=== PATIENT | female | born 1950 | race Caucasian/White ===

== ENCOUNTER 2017-12-12 02:27 | Observation (INO) | payer MEDICARE, OTHER ==
[~2017-12-12] VITALS: Ht 165.1 cm; Wt 115.9 kg
[2017-12-12] MEDS ORDERED: Omeprazole20 M1 PO (02:41)
[2017-12-12] MEDS ORDERED: GABA300 PO (02:42)
[2017-12-12] MEDS ORDERED: MELO7.5 PO (02:43)
[2017-12-12] MEDS ORDERED: HYDR1TAB94 PO (02:44)
[2017-12-12 02:55] LABS: BASOPHILS ABSOLUTE AUTO 0.07 K/mm3 (0.00-0.23); BASOPHILS PERCENT AUTO 1 % (0-2); EOSINOPHILS ABSOLUTE AUTO 0.18 K/mm3 (0.00-0.68); EOSINOPHILS PERCENT AUTO 2 % (0-6); Hematocrit 42.2 % (33.0-51.0); Hemoglobin 13.7 g/dL (11.5-16.0); IMMATURE GRAN ABSOLUTE AUTO 0.05 K/mm3 (0.00-0.10); IMMATURE GRAN PERCENT AUTO 1 % (0-1); LYMPHOCYTES ABSOLUTE AUTO 2.46 K/mm3 (0.84-5.20); LYMPHOCYTES PERCENT AUTO 27 % (21-46); MONOCYTES PERCENT AUTO 9 % (4-13); Mean Corpuscular HGB 29.4 pg (26.0-34.0); Mean Corpuscular HGB Conc 32.5 g/dL (31.5-36.5); Mean Corpuscular Volume 91 fL (80-100); Mean Platelet Volume 9.8 fL (9.1-12.4); NEUTROPHILS ABSOLUTE AUTO 5.45 K/mm3 (1.96-9.15); NEUTROPHILS PERCENT AUTO 60 % (41-73); Platelet Count 296 K/mm3 (150-400); RDW Coefficient Variation 13.7 % (11.7-14.2); RDW Standard Deviation 45.5 fL (35.1-46.3); Red Blood Cell Count 4.66 M/mm3 (3.80-5.20); White Blood Cell Count 9.01 K/mm3 (4.00-11.30)
[2017-12-12 03:08] LABS: International Normalized Ratio 0.94; Prothrombin Time Results 9.7 Sec (9.7-11.5)
[2017-12-12 03:09] LABS: Alanine Aminotransfer (ALT/SGP 17 U/L (12-78); Albumin, Blood 3.2 g/dL (3.4-5.0); Albumin/Globulin Ratio 0.7 (0.8-1.8); Alk Phos 114 U/L (50-136); Anion Gap 9 mmol/L (6-16); Aspartate Aminotrans (AST/SGOT 17 U/L (12-37); Bilirubin, Total 0.2 mg/dL (0.1-1.0); Blood Urea Nitrogen 10 mg/dL (8-24); Bun/Creatinine Ratio 13.3 (12.0-20.0); CO2, Blood 23 mmol/L (21-32); Calcium, Blood 8.5 mg/dL (8.5-10.1); Chloride, Blood 105 mmol/L (98-108); Creatinine, Blood 0.75 mg/dL (0.40-1.00); Globulin, Blood 4.5 g/dL (2.2-4.0); Glomerular Filtration Rate >60 (60-); Glucose, Blood 106 mg/dL (70-99); Potassium, Blood 4.1 mmol/L (3.5-5.5); Sodium, Blood 137 mmol/L (136-145); Total Protein, Blood 7.7 g/dL (6.4-8.2); Troponin I <0.015 ng/mL (0.000-0.040)
[2017-12-12] MEDS ORDERED: BENADRYL25 MG PO (07:25)
== END 2017-12-12 12:56 | disposition short-term general hospital (02) ==
LOC: ER 02:27 → PCU 02:29 → ER 05:27 → PCU 05:27
PROVIDERS: Emergency Medicine
PROC: 4A023N7 Measurement of Cardiac Sampling and Pressure, Left Heart, Percutaneous Approach (ICD-10-PCS; principal; 2017-12-12)
PROC: B2111ZZ Fluoroscopy of Multiple Coronary Arteries using Low Osmolar Contrast (ICD-10-PCS; 2017-12-12)
DX: I25.10 Atherosclerotic heart disease of native coronary artery without angina pectoris (principal); I21.4 Non-ST elevation (NSTEMI) myocardial infarction; I49.9 Cardiac arrhythmia, unspecified; M54.9 Dorsalgia, unspecified; G89.29 Other chronic pain; F17.210 Nicotine dependence, cigarettes, uncomplicated
CPT/HCPCS: 36415; 71275; 74175; 80053; 83880; 84484; 85025; 85610; 85730; 93005; 93010; 93454; 96374; 96375; 99152; 99153; 99285-25; C1769; C1894; G0378; J0282; J1644; J2250; J3010; J7030; Q9967

== ENCOUNTER 2019-09-04 19:57 | Emergency (ER) | payer MEDICARE, OTHER ==
[~2019-09-04] VITALS: Ht 165.1 cm; Wt 122.0 kg
[~2019-09-04 19:57] MED LIST: BENADRYL25 MG PO; GABA300 PO; HYDR1TAB94 PO; MELO7.5 PO; Omeprazole20 M1 PO
[2019-09-04 20:23] LABS: BASOPHILS ABSOLUTE AUTO 0.07 K/mm3 (0.00-0.23); BASOPHILS PERCENT AUTO 1 % (0-2); EOSINOPHILS ABSOLUTE AUTO 0.13 K/mm3 (0.00-0.68); EOSINOPHILS PERCENT AUTO 1 % (0-6); Hematocrit 38.3 % (33.0-51.0); IMMATURE GRAN ABSOLUTE AUTO 0.04 K/mm3 (0.00-0.10); IMMATURE GRAN PERCENT AUTO 0 % (0-1); LYMPHOCYTES ABSOLUTE AUTO 1.65 K/mm3 (0.84-5.20); LYMPHOCYTES PERCENT AUTO 18 % (21-46); MONOCYTES ABSOLUTE AUTO 0.86 K/mm3 (0.16-1.47); MONOCYTES PERCENT AUTO 10 % (4-13); Mean Corpuscular HGB 28.4 pg (26.0-34.0); Mean Corpuscular HGB Conc 31.3 g/dL (31.5-36.5); Mean Corpuscular Volume 91 fL (80-100); Mean Platelet Volume 10.1 fL (9.1-12.4); NEUTROPHILS ABSOLUTE AUTO 6.31 K/mm3 (1.96-9.15); NEUTROPHILS PERCENT AUTO 70 % (41-73); Platelet Count 289 K/mm3 (150-400); RDW Coefficient Variation 13.5 % (11.7-14.2); RDW Standard Deviation 44.9 fL (35.1-46.3); Red Blood Cell Count 4.23 M/mm3 (3.80-5.20); White Blood Cell Count 9.06 K/mm3 (4.00-11.30)
[2019-09-04] MEDS ORDERED: ATOR20 PO (20:34)
[2019-09-04] MEDS ORDERED: METO25ER PO (20:34)
[2019-09-04] MEDS ORDERED: BENADRYL25 MG PO (20:35)
[2019-09-04] MEDS ORDERED: ASPI81CH PO (20:35)
[2019-09-04] MEDS ORDERED: NITR.4SL SL (20:36)
[2019-09-04] MEDS ORDERED: ESCI10 PO (20:36)
[2019-09-04] MEDS ORDERED: Isosorbide Mono30 MG PO (20:36)
[2019-09-04 20:45] LABS: Alanine Aminotransfer (ALT/SGP 27 U/L (12-78); Albumin, Blood 2.8 g/dL (3.4-5.0); Albumin/Globulin Ratio 0.7 (0.8-1.8); Alk Phos 117 U/L (50-136); Anion Gap 2 mmol/L (6-16); Aspartate Aminotrans (AST/SGOT 24 U/L (12-37); Bilirubin, Total 0.2 mg/dL (0.1-1.0); Blood Urea Nitrogen 13 mg/dL (8-24); Bun/Creatinine Ratio 17.2 (12.0-20.0); CO2, Blood 28 mmol/L (21-32); Calcium, Blood 8.7 mg/dL (8.5-10.1); Chloride, Blood 108 mmol/L (98-108); Creatinine, Blood 0.76 mg/dL (0.40-1.00); Globulin, Blood 4.3 g/dL (2.2-4.0); Glomerular Filtration Rate >60 (60-); Glucose, Blood 132 mg/dL (70-99); Potassium, Blood 4.1 mmol/L (3.5-5.5); Sodium, Blood 138 mmol/L (136-145); Total Protein, Blood 7.1 g/dL (6.4-8.2); Troponin I <0.015 ng/mL (0.000-0.040)
[2019-09-04 20:47] LABS: Thyroid Stimulating Hormone 0.011 uIU/mL (0.360-4.800)
== END 2019-09-04 23:23 | disposition left against medical advice (07) ==
LOC: ER 19:57
PROVIDERS: Emergency Medicine
DX: R07.9 Chest pain, unspecified (principal); I25.10 Atherosclerotic heart disease of native coronary artery without angina pectoris; K21.9 Gastro-esophageal reflux disease without esophagitis; I25.2 Old myocardial infarction; F17.210 Nicotine dependence, cigarettes, uncomplicated; Z79.899 Other long term (current) drug therapy; Z95.5 Presence of coronary angioplasty implant and graft
CPT/HCPCS: 36415; 71045; 80053; 83690; 83880; 84443; 84484; 85025; 93005; 93010; 99285-25; J2405

== ENCOUNTER 2019-09-08 12:39 | Observation (INO) | payer MEDICARE, OTHER ==
[~2019-09-08] VITALS: Ht 165.1 cm; Wt 121.0 kg
[~2019-09-08 12:39] MED LIST changes: +ATOR20 PO; +Aspirin EC81 MG PO; +ESCI10 PO; +Isosorbide Mono30 MG PO; +METO25ER PO; +NITR.4SL SL
[2019-09-08 13:17] LABS: BASOPHILS ABSOLUTE AUTO 0.06 K/mm3 (0.00-0.23); BASOPHILS PERCENT AUTO 1 % (0-2); EOSINOPHILS ABSOLUTE AUTO 0.22 K/mm3 (0.00-0.68); EOSINOPHILS PERCENT AUTO 2 % (0-6); Hematocrit 40.2 % (33.0-51.0); Hemoglobin 12.6 g/dL (11.5-16.0); IMMATURE GRAN ABSOLUTE AUTO 0.05 K/mm3 (0.00-0.10); IMMATURE GRAN PERCENT AUTO 1 % (0-1); LYMPHOCYTES ABSOLUTE AUTO 2.36 K/mm3 (0.84-5.20); LYMPHOCYTES PERCENT AUTO 24 % (21-46); MONOCYTES ABSOLUTE AUTO 1.03 K/mm3 (0.16-1.47); MONOCYTES PERCENT AUTO 10 % (4-13); Mean Corpuscular HGB 28.3 pg (26.0-34.0); Mean Corpuscular HGB Conc 31.3 g/dL (31.5-36.5); Mean Corpuscular Volume 90 fL (80-100); Mean Platelet Volume 9.9 fL (9.1-12.4); NEUTROPHILS PERCENT AUTO 63 % (41-73); Platelet Count 296 K/mm3 (150-400); RDW Coefficient Variation 13.3 % (11.7-14.2); RDW Standard Deviation 43.8 fL (35.1-46.3); Red Blood Cell Count 4.45 M/mm3 (3.80-5.20); White Blood Cell Count 10.02 K/mm3 (4.00-11.30)
[2019-09-08 13:39] LABS: Alanine Aminotransfer (ALT/SGP 22 U/L (12-78); Albumin/Globulin Ratio 0.7 (0.8-1.8); Alk Phos 122 U/L (50-136); Anion Gap 10 mmol/L (6-16); Aspartate Aminotrans (AST/SGOT 21 U/L (12-37); Bilirubin, Total 0.5 mg/dL (0.1-1.0); Blood Urea Nitrogen 15 mg/dL (8-24); Bun/Creatinine Ratio 20.3 (12.0-20.0); CO2, Blood 21 mmol/L (21-32); Calcium, Blood 8.9 mg/dL (8.5-10.1); Chloride, Blood 106 mmol/L (98-108); Creatinine, Blood 0.74 mg/dL (0.40-1.00); Globulin, Blood 4.3 g/dL (2.2-4.0); Glomerular Filtration Rate >60 (60-); Glucose, Blood 92 mg/dL (70-99); Potassium, Blood 4.1 mmol/L (3.5-5.5); Sodium, Blood 137 mmol/L (136-145); Total Protein, Blood 7.3 g/dL (6.4-8.2); Troponin I 0.205 ng/mL (0.000-0.040)
[2019-09-08] MEDS ORDERED: GABAPENTIN600 MG PO (14:24)
[2019-09-08 15:32] LABS: International Normalized Ratio 0.98; Prothrombin Time Results 10.5 Sec (9.7-11.5)
[2019-09-08 15:37] LABS: Free Thyroxine 1.87 ng/dL (0.70-1.60)
[2019-09-08 15:39] LABS: Thyroid Stimulating Hormone 0.012 uIU/mL (0.360-4.800)
--- NOTE | 2019-09-08 18:24 | NUR ---
SHIFT SUMMARY PT ADMITTED THIS AFTERNOON FROM ED. PT HAS DECLINED CP SINCE ADMIT. HEPARIN GTT STARTED PER PHARMACY DOSING. SEE EMAR FOR DOCUMENATION. DR AVILEZ SAW PT PRIOR TO SHIFT CHANGE, DOESN'T PLAN HEART TODAY. MONITOR SHOWS PT TO VE IN SINUS RHYTHM, VITALS HAVE BEEN STABLE. PT REPORTS NEW REDNESS TO BLE THAT STARTED WITH BLISTERS A FEW DAYS AGO. WOUNDS ARE INTACT AND OPEN TO AIR.
--- NOTE | 2019-09-08 19:59 | NUR ---
INITAL SHIFT ASSESSMENT PT IS ALERT IN ROOM SITTING UP IN BED. SHE HAS NO COMPLAINTS AT THIS TIME. STATES SHE IS TIRED. DENIES ANY PAIN. VITALS ARE STABLE. SHE WAS ABLE TO TAKE PO MEDS WITH WATER WITH NO ISSUES. PT DID HAVE AN IV IN HER LEFT HAND THAT WAS INFILTRATED WITH HEP GTT. RALPH DISPLAY CARD WRITER IN ROOM STARTING A NEW IV. PT TOLERATING THIS WELL. PT IS CONCERNED ABOUT HER PROCEDURE TOMORROW, BUT WANTS THE PROCEDURE. THIS RN WAS ABLE TO TALK WITH HER AND RE-ASSURE HER. PT ALSO STATES THE REDNESS TO LOWER LEG IS NEW. ALSO STATES SHE HAS MORE EDEMA THAN NORMAL. CALL LIGHT IN REACH AT THIS TIME. WILL CON'T TO MONITOR PT T/O SHIFT AND KEEP SAFE.
--- NOTE | 2019-09-08 23:43 | NUR ---
SHIFT UPDATE PT CON'T TO BE STABLE. SHE IS COOPERTIVE WITH HER CARE AND USING CALL LIGHT NEEDED. VITALS ARE STABLE AT THIS TIME. HEP GTT WAS CHANGED AT THIS TIME ORDERED BY PHARMACY. WILL CON'T TO MONITOR PT T/O SHIFT.
[2019-09-09 04:16] LABS: BASOPHILS ABSOLUTE AUTO 0.05 K/mm3 (0.00-0.23); BASOPHILS PERCENT AUTO 1 % (0-2); EOSINOPHILS ABSOLUTE AUTO 0.14 K/mm3 (0.00-0.68); EOSINOPHILS PERCENT AUTO 2 % (0-6); Hematocrit 37.3 % (33.0-51.0); Hemoglobin 11.8 g/dL (11.5-16.0); IMMATURE GRAN ABSOLUTE AUTO 0.02 K/mm3 (0.00-0.10); IMMATURE GRAN PERCENT AUTO 0 % (0-1); LYMPHOCYTES ABSOLUTE AUTO 1.47 K/mm3 (0.84-5.20); LYMPHOCYTES PERCENT AUTO 24 % (21-46); MONOCYTES ABSOLUTE AUTO 0.65 K/mm3 (0.16-1.47); MONOCYTES PERCENT AUTO 11 % (4-13); Mean Corpuscular HGB 28.6 pg (26.0-34.0); Mean Corpuscular HGB Conc 31.6 g/dL (31.5-36.5); Mean Corpuscular Volume 90 fL (80-100); Mean Platelet Volume 9.9 fL (9.1-12.4); NEUTROPHILS ABSOLUTE AUTO 3.79 K/mm3 (1.96-9.15); NEUTROPHILS PERCENT AUTO 62 % (41-73); Platelet Count 254 K/mm3 (150-400); RDW Coefficient Variation 13.3 % (11.7-14.2); RDW Standard Deviation 44.2 fL (35.1-46.3); Red Blood Cell Count 4.13 M/mm3 (3.80-5.20); White Blood Cell Count 6.12 K/mm3 (4.00-11.30)
[2019-09-09 04:32] LABS: LDL/HDL RATIO 2.1; Very Low Density Lipoprot Chol 24 mg/dL (6-32)
[2019-09-09 04:33] LABS: Anion Gap 5 mmol/L (6-16); Blood Urea Nitrogen 13 mg/dL (8-24); Bun/Creatinine Ratio 18.5 (12.0-20.0); CHOL/HDL RATIO 3.8; CO2, Blood 28 mmol/L (21-32); Calcium, Blood 8.7 mg/dL (8.5-10.1); Chloride, Blood 107 mmol/L (98-108); Cholesterol 135 mg/dL (50-200); Glomerular Filtration Rate >60 (60-); Glucose, Blood 101 mg/dL (70-99); HDL Cholesterol 36 mg/dL (>39); Low Density Lipoprotein Chol 75 mg/dL (0-110); Potassium, Blood 3.8 mmol/L (3.5-5.5); Sodium, Blood 140 mmol/L (136-145); Triglycerides 120 mg/dL (30-160)
--- NOTE | 2019-09-09 06:25 | NUR ---
DR JIMENEZ IN TO SEE PT THIS AM. WILL IMPLEMENT ANY NEW ORDERS. SKIN CONDITION TO LOWER LEGS BROUGHT TO HER ATTENTION AND SHE WILL PASS ON TO HOSPITALIST THE NEED LIKELY FOR ANTIBIOTICS.
--- NOTE | 2019-09-09 08:00 | NUR ---
ASSUMED CARE RECIEVED REPORT FROM DEAN NOWAK. PT IS ALERT AND ORIENTED X 4 IN BED. SHE IS ON ROOM AIR, AND IS IN A SINUS RHYTHM, RATE 70'S. SHE DENIES CP AND SOB. BED LOW AND LOCKED. CALL LIGHT WITHIN REACH.
--- NOTE | 2019-09-09 08:30 | NUR ---
ASSUMED CARE RECIEVED REPORT FROM DEAN NOWAK. PT IS ALERT AND ORIENTED X 4, LYING IN BED ON ROOM AIR.
--- NOTE | 2019-09-09 14:46 | NUR ---
BACK FROM SILVER SERVICE WAITER AT 1437 SILVER SERVICE WAITER RN TOLD ME NO INTERVENTION WAS DONE. RCA HAS 100% OCCLUSION, BUT IS COLLATERALIZED AND WARRENTED NO INTERVENTION, AND THE STENT PLACED BACK IN 2018 IN THE LAD WAS 100% OPEN. THEY CATHETERIZED VIA RIGHT ULNAR ARTERY, AND THERE IS CURRENTLY A TR BAND INFLATED 15ML. SITE: NO S/S OF BLEEDING/HEMATOMA FORMATION, GOOD DISTAL CAP REFIL, GOOD COLOR, PT REPORTS NO PAIN IN FINGERS ASIDE FROM A TINGLING SENSATION. PT REMAINS IN SINUS RHYTHM, RATE IN THE 70'S, WITH STABLE BP.
--- NOTE | 2019-09-09 17:40 | NUR ---
UPDATE/TR BAND 1541 - REMOVED 10ML OF AIR; 5ML REMAINED. NO CHANGES. NO S/S OF BLEEDING OR HEMATOMA FORMATION. PT COMPLAINS OF SLIGHT NUMBNESS/TINGLING BUT NO PAIN, TENDERNESS, SHE HAS GOOD CAP REFILL AND PULSE. 1630 - REMOVED REMAINING 5ML; TR BAND REMAINS IN PLACE (COMPLETELY DEFLATED). AGAIN NO COMPLAINTS OF PAIN, TENDERNESS, JUST SOME NUMBNESS. SHE HAS GOOD CAP REFILL AND A GOOD PULSE. 1730 - TR BAND IS OFF, OPSITE COVERS SITE. NO S/S OF BLEEDING/HEMATOMA FORMATION. NO MORE NUMBNESS, NO PAIN, NO TINGLING, GOOD PULSE AND CAP REFILL.
--- NOTE | 2019-09-09 17:44 | NUR ---
CARDIOLOGY STANDPOINT I WAS UNABLE TO GET AHOLD OF DR AVILEZ SO I PLACED A CALL TO DR RAVI AND SHE SAID FROM A CARDIAC STANDPOINT SHE CAN BE READY TO DISCHARGE. I THEN PLACED A CALL TO DR CHURCH, AND HE IS OKAY WITH DISCHARGING HER TONIGHT.
[2019-09-09] MEDS ORDERED: FURO20 PO (18:19)
[2019-09-09] MEDS ORDERED: CLOP75 PO (18:20)
[2019-09-09] MEDS ORDERED: Isosorbide Mono30 MG PO (18:21)
--- NOTE | 2019-09-09 19:43 | NUR ---
DISCHARGED PT WAS DISCHARGED HOME BY DAY SHIFT DEAN [facility]. THIS RN HELPED PT GATHER HER THINGS AND TAKE HER OUT TO HER CAR VIA WHEELCHAIR. WAS THERE TO DRIVE PT HOME. PT DID FORGET HER DISCHARGE INSTRUSTIONS PACKET. CALLED AND LEFT A MESSAGE ON HER PROVIDED PHONE NUMBER THAT THEY WILL BE MAILED TO HER. PT [facility].
== END 2019-09-09 19:29 | disposition home or self-care (01) ==
LOC: ER 12:39 → PCU 12:40 → ICUE 14:56
PROVIDERS: Emergency Medicine; Internal Medicine Cardiovascular Disease; ADMIT Internal Medicine
DX: I21.4 Non-ST elevation (NSTEMI) myocardial infarction (principal); I25.110 Atherosclerotic heart disease of native coronary artery with unstable angina pectoris; E05.90 Thyrotoxicosis, unspecified without thyrotoxic crisis or storm; I65.29 Occlusion and stenosis of unspecified carotid artery; I73.9 Peripheral vascular disease, unspecified; L30.9 Dermatitis, unspecified; G89.29 Other chronic pain; M54.9 Dorsalgia, unspecified; Z95.5 Presence of coronary angioplasty implant and graft; K21.9 Gastro-esophageal reflux disease without esophagitis; Z79.82 Long term (current) use of aspirin; Z79.899 Other long term (current) drug therapy; E78.5 Hyperlipidemia, unspecified; E66.01 Morbid (severe) obesity due to excess calories; Z87.891 Personal history of nicotine dependence; I11.0 Hypertensive heart disease with heart failure; I50.31 Acute diastolic (congestive) heart failure; Z68.41 Body mass index [BMI] 40.0-44.9, adult
CPT/HCPCS: 36415; 71046; 76937; 80048; 80053; 80061; 83880; 84439; 84443; 84484; 85025; 85610; 85730; 93005; 93010; 93306; 93458; 93880; 96374; 96375; 96376; 99152; 99153; 99285-25; A9270-GY; C1769; C1894; G0378; J1644; J1940; J2250; J3010; J7030; Q9967

== ENCOUNTER → 2020-10-29 | Outpatient (CLI) | payer MEDICARE ==
[~2020-10-29] MED LIST changes: +CLOP75 PO; +FURO20 PO; +GABAPENTIN600 MG PO
== END | disposition home or self-care (01) ==
LOC: LAB SHORT 08:27 → LAB 08:27
DX: L98.9 Disorder of the skin and subcutaneous tissue, unspecified (principal)
CPT/HCPCS: 88305; 88312